=== PATIENT | female | born 1960 | race Caucasian/White ===

== ENCOUNTER → 2023-11-15 09:31 | Outpatient (REF) | payer BC, SELFPAY ==
[2023-11-15 11:16] LABS: % Basophils 0.7 % (0-2); % Eosinophils 2.4 % (0-6); % Lymphocytes 27.6 % (20.5-51.1); % Monocytes 8.2 % (1.7-9.3); % Neutrophils 60.1 % (42.2-75.2); Absolute Eosinophils 0.1 10^3/uL (0-0.7); Absolute Immature Granulocytes 0.1 10^3/uL (0-0.05); Absolute Lymphocytes 1.6 10^3/uL (1.2-3.4); Absolute Monocytes 0.5 10^3/uL (0.1-0.6); Absolute Neutrophils 3.5 10^3/uL (1.4-6.5); Hematocrit 42.6 % (37.0-47.0); Hemoglobin 13.4 g/dL (12.0-16.0); Mean Corp Hgb Conc. 31.5 g/dL (33.0-37.0); Mean Corpuscular Hgb 28.3 pg (27.0-31.0); Mean Corpuscular Volume 90.1 fL (81.0-99.0); Mean Platelet Volume 9.9 fL (7.4-10.4); Nucleated Red Blood Cells % 0 %; Platelet Count 311 10^3/uL (130-400); Red Blood Cell Count 4.73 10^6/uL (4.20-5.40); Red Cell Dist. Width 14.2 % (11.5-14.5); White Blood Cell Count 5.9 10^3/uL (4.8-10.8)
[2023-11-15 11:49] LABS: ALT (SGPT) 26 U/L (0-35); AST (SGOT) 25 U/L (14-36); Albumin 4.8 g/dl (3.5-5.0); Alkaline Phosphatase 62 U/L (38-126); Blood Urea Nitrogen 15 mg/dl (7-17); Carbon Dioxide 32 mmol/L (22-30); Chloride 101 mmol/L (98-107); Glucose 76 mg/dl (70-99); Potassium 4.5 mmol/L (3.5-5.1); Sodium 140 mmol/L (135-145); Total Bilirubin 0.4 mg/dl (0.2-1.3); Total Protein 7.1 g/dl (6.3-8.2); eGFR > 60.00
[2023-11-15 11:50] LABS: Erythrocyte Sed Rate 7 mm/hour (0-20)
[2023-11-15 11:56] LABS: C-Reactive Protein < 5.00 mg/L (0.0-10.00)
[2023-11-15 12:27] LABS: TSH 1.45 uIU/ml (0.47-4.68)
[2023-11-17 02:32] LABS: ds-DNA Ab, IgG Reflex To Titer 3 IU (0-24)
[2023-11-17 03:23] LABS: ANA, IgG Reflex to HEp-2 None Detected (None Detected)
[2023-11-18 00:02] LABS: IgG 498 mg/dl (700-1600); IgM 85 mg/dl (40-230)
[2023-11-18 00:39] LABS: IgA < 50 mg/dl (70-400)
== END ==
LOC: REG 09:31
PROVIDERS: FAMILY PHYSICIAN Family Medicine
DX: D83.9 Common variable immunodeficiency, unspecified (principal); R21 Rash and other nonspecific skin eruption
CPT/HCPCS: 36415; 80053; 82784; 84443; 85025; 85652; 86038; 86140; 86225; 86317; 86430

== ENCOUNTER 2024-01-28 19:49 | Emergency (ER) | payer BC, SELFPAY ==
[2024-01-28 19:54] VITALS: BP 152/75
[2024-01-28 20:14] LABS: % Basophils 0.4 % (0-2); % Eosinophils 0.3 % (0-6); % Immature Granulocytes 0.1 % (0-0.5); % Lymphocytes 16.3 % (20.5-51.1); % Monocytes 5.3 % (1.7-9.3); % Neutrophils 77.6 % (42.2-75.2); Absolute Lymphocytes 1.3 10^3/uL (1.2-3.4); Absolute Monocytes 0.4 10^3/uL (0.1-0.6); Absolute Neutrophils 6.2 10^3/uL (1.4-6.5); Hematocrit 38.2 % (37.0-47.0); Hemoglobin 12.8 g/dL (12.0-16.0); Mean Corp Hgb Conc. 33.5 g/dL (33.0-37.0); Mean Corpuscular Hgb 28.3 pg (27.0-31.0); Mean Corpuscular Volume 84.5 fL (81.0-99.0); Mean Platelet Volume 9.4 fL (7.4-10.4); Nucleated Red Blood Cells % 0 %; Platelet Count 326 10^3/uL (130-400); Red Blood Cell Count 4.52 10^6/uL (4.20-5.40); Red Cell Dist. Width 14.2 % (11.5-14.5); White Blood Cell Count 7.9 10^3/uL (4.8-10.8)
[2024-01-28 20:29] LABS: ALT (SGPT) 20 U/L (0-35); AST (SGOT) 22 U/L (14-36); Albumin 4.6 g/dl (3.5-5.0); Alkaline Phosphatase 67 U/L (38-126); Blood Urea Nitrogen 13 mg/dl (7-17); Calcium 10.1 mg/dl (8.4-10.2); Carbon Dioxide 26 mmol/L (22-30); Chloride 102 mmol/L (98-107); Glucose 137 mg/dl (70-99); Sodium 133 mmol/L (135-145); Total Bilirubin 0.6 mg/dl (0.2-1.3); Total Protein 6.6 g/dl (6.3-8.2); eGFR > 60.00
[2024-01-28 22:32] VITALS: BMI 21.5
[2024-01-28 22:33] VITALS: BP 136/82
[2024-01-28] MEDS: NSS 1000 IV (23:38)
[2024-01-28] MEDS: BENADRYL 25 MG IV (23:39)
[2024-01-28] MEDS: REGLAN 10 MG IV (23:40)
[2024-01-29 00:19] VITALS: BP 105/75
--- NOTE | 2024-01-29 00:44 | ED.GENMED ---
History of Present Illness
General
Chief Complaint: Headache
Source: patient
Exam Limitations: none
Time Seen by Provider: 01/28/24 22:16
Nursing documentation reviewed up to this point in time: agreed with
History of Present Illness
History of Present Illness:
Patient is a 63-year-old female presented to the ER for evaluation of headache. Patient reports she was prescribed doxycycline for toe infection and took a dose last night and woke up this morning with a headache. She is attributing the headache
to doxycycline. She typically does not get headaches. She is very nauseous with the headaches and had light sensitivity . She denies any trauma she is not on blood thinners. She denies any recent illness fever chills she. She denies any rash
neck stiffness blurry vision.
Past History
Past History
ED Past Medical History: None
ED Past Surgical History: None
Social History
Tobacco: Non-smoker
Alcohol: None
Drug: None
Personal:
Living: with family
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
Review of Systems
Review of Systems
Allergies reviewed?: Yes
All Other Systems: ROS reviewed and negative except as documented in HPI and ROS
Constitutional: Reports no symptoms
Respiratory: Reports no symptoms
Cardiac: Reports no symptoms
ABD/GI: Reports nausea
: Reports no symptoms
Musculoskeletal: Reports no symptoms; Denies neck pain
Skin: Reports no symptoms; Denies rash
Neurological: Reports headache; Denies dizzy
Psychiatric: Reports no symptoms
Phy Exam
General Physical Exam
General Presentation: no apparent distress
General age: appears stated age
General Skin: warm and dry
General Habitus: normal
General Mental: alert
General Hydration: appears well hydrated
ENT Exam
ENT Exam: EOMI and neck supple
Cardiovascular Exam
Cardiovascular Exam: regular rate/rhythm, no murmur and normal peripheral pulses
Pulmonary Exam
Pulmonary Exam: lungs clear and no respiratory distress
Neurological Exam
Neurological Exam: alert, oriented x3, no motor deficits and no sensory deficits
Alisha Coma Scale
Eye Opening: Spontaneous
Verbal Response: Oriented
Motor Response: Obeys Commands
GCS Total Score: 15
Musculoskeletal Exam
Musculoskeletal Exam: full ROM
Skin Exam
Skin Exam: normal color and warm/dry
Course
Orders/Labs/Results
Orders:
Orders
01/28/24 20:03
CMP [Comprehensive Metabolic Panel] Urgent
Complete Blood Count/With Diff Urgent
01/28/24 23:21
Diphenhydramine [Benadryl] 25 mg IV NOW STA
Metoclopramide [Reglan] 10 mg IV NOW STA
01/28/24 23:22
0.9% Sodium Chloride 1000 ml [Nss] 1,000 ml IV BOLUS
01/29/24 00:10
CT Head W/o Iv Contrast Urgent
Reason For Exam: headache
01/29/24 01:05
Ketorolac [Toradol] 15 mg IV NOW STA
Abnormal Lab Results
01/28/24
20:03
Neutrophils % 77.6 H %
(42.2-75.2)
Lymphocytes % 16.3 L %
(20.5-51.1)
Sodium 133 L mmol/L
(135-145)
Creatinine 0.5 L mg/dL
(0.6-1.0)
Glucose 137 H mg/dl
(70-99)
01/28/24 20:03
01/28/24 20:03
Vital Signs
Initial and Last Documented VS:
Initial Vital Signs
Temp Pulse Resp BP Pulse Ox
98.7 F 80 18 152/75 99
01/28/24 19:54 01/28/24 19:54 01/28/24 19:54 01/28/24 19:54 01/28/24 19:54
Last Documented Vital Signs
Temp Pulse Resp BP Pulse Ox
98.7 F 78 20 112/73 96
01/28/24 19:54 01/29/24 01:17 01/29/24 01:17 01/29/24 01:17 01/29/24 01:17
MDM/Problems Addressed
MDM/Problems Addressed:
Patient is a 63-year-old female who presented with headache. Patient is presently on antibiotics and and took the first dose last night doxycycline woke up with a headache this morning. She is attributing the headache to this. She however
presents awake alert no acute distress she does have light sensitivity and headache no meningismus no recent fever chills illness rash. No trauma no blood thinners. CT head negative. Patient was given Reglan fluids feeling much better also
Toradol further improved symptoms. Patient looks very well nontoxic labs unremarkable will. Will DC home with outpatient follow-up family doctor. No concerning patient's workup
*Radiology
Radiology exam reviewed: radiology read reviewed
*Pulse Oximetry
Patient hypoxic: no
*Critical Care Note
Total Time (30-74mins, 75-104mins- exclusive of procedures): Not Applicable
ED Attending Note
-
Portions of this chart may have been created with voice recognition software.� Occasional wrong word or��sound alike� substitutions may have occurred due to the inherent limitations of voice recognition software.
Discharge Plan
Departure
Patient Disposition: Home (Routine Discharge)
Date of Disposition: 01/29/24
Time of Disposition: 02:00
Patient with high blood pressure during this ER visit?: No
Condition: Fair
Covid-19: Not Applicable
Discharge Problem:
Headache
Instructions: Headache, Adult (DC), BLOOD PRESSURE
Prescriptions:
No Action
Probiotic
1 tab PO HS
Qvar RediHaler
2 inh inhalation HS
Singulair
10 mg PO DAILY
Vitamin D3
1 tab PO DAILY
albuterol
2 inh inhalation Q4H PRN (Reason: SOB)
calcium
1 tab PO DAILY
magnesium
1 tab PO HS
Referrals:
Darius Bond DO [Family Provider] -
Activity Restrictions/Additional Instructions:
As discussed you may take Tylenol for headache. Follow-up with your family doctor give them a call tomorrow for reevaluation of headache as well as further instructions on taking doxycycline. Return if any worsening of symptoms.
Interventions
Interventions:
*General Assessment Last Done: 01/28/24 22:33
*Neglect/Abuse Screening Last Done: 01/28/24 22:33
ED- Fall Risk Assessment Last Done: 01/28/24 22:33
ED- Neurological Assessment Last Done: 01/28/24 22:33
Discharge Date and Time
Print Language: ICELANDIC
[2024-01-29] MEDS: TORADOL 15 MG IV (01:13)
[2024-01-29 01:17] VITALS: BP 112/73
[2024-01-29 02:14] VITALS: BP 102/67
== END 2024-01-29 02:21 | disposition home or self-care (01) ==
LOC: EMR 19:49
PROVIDERS: Student in an Organized Health Care Education/Training Program; EMERGENCY PHYSICIAN Student in an Organized Health Care Education/Training Program; FAMILY PHYSICIAN Family Medicine
DX: R51.9 Headache, unspecified (principal)
CPT/HCPCS: 99284; 96374; 96375; 70450; 80053; 85025

== ENCOUNTER → 2024-04-10 08:21 | Outpatient (REF) | payer BC, SELFPAY ==
[2024-04-10 09:36] LABS: % Basophils 0.7 % (0-2); % Eosinophils 1.4 % (0-6); % Immature Granulocytes 0.3 % (0-0.5); % Monocytes 8.3 % (1.7-9.3); % Neutrophils 64.3 % (42.2-75.2); Absolute Eosinophils 0.1 10^3/uL (0-0.7); Absolute Lymphocytes 1.4 10^3/uL (1.2-3.4); Absolute Monocytes 0.5 10^3/uL (0.1-0.6); Absolute Neutrophils 3.7 10^3/uL (1.4-6.5); Hematocrit 39.9 % (37.0-47.0); Hemoglobin 12.8 g/dL (12.0-16.0); Mean Corp Hgb Conc. 32.1 g/dL (33.0-37.0); Mean Corpuscular Hgb 27.8 pg (27.0-31.0); Mean Corpuscular Volume 86.6 fL (81.0-99.0); Mean Platelet Volume 9.4 fL (7.4-10.4); Nucleated Red Blood Cells % 0 %; Platelet Count 331 10^3/uL (130-400); Red Blood Cell Count 4.61 10^6/uL (4.20-5.40); Red Cell Dist. Width 14.4 % (11.5-14.5); White Blood Cell Count 5.8 10^3/uL (4.8-10.8)
[2024-04-10 10:04] LABS: Urine Albumin Negative (Neg - Trace); Urine Bilirubin Negative (Negative); Urine Character Clear (Clear); Urine Color Yellow; Urine Glucose Negative (Negative); Urine Ketone Negative (Negative); Urine Leukocyte Negative (Negative); Urine Nitrite Negative (Negative); Urine Occult Blood Negative (Negative); Urine Specific Gravity 1.005 (<1.030); Urine Urobilinogen Negative (Neg - 1+)
[2024-04-10 10:33] LABS: ALT (SGPT) 21 U/L (0-35); AST (SGOT) 25 U/L (14-36); Albumin 4.7 g/dl (3.5-5.0); Alkaline Phosphatase 49 U/L (38-126); Blood Urea Nitrogen 13 mg/dl (7-17); Calcium 9.6 mg/dl (8.4-10.2); Carbon Dioxide 31 mmol/L (22-30); Chloride 102 mmol/L (98-107); Glucose 88 mg/dl (70-99); HDL Cholesterol 106 mg/dl; LDL Cholesterol, Calculated 104 mg/dl; Potassium 4.1 mmol/L (3.5-5.1); Sodium 142 mmol/L (135-145); Total Bilirubin 0.5 mg/dl (0.2-1.3); Total Cholesterol 223 mg/dl (50-199); Total Protein 6.9 g/dl (6.3-8.2); Triglyceride 66 mg/dl (10-149); Very Low Density Lipoprotein 13 mg/dl (0-30); eGFR > 60.00
[2024-04-10 11:00] LABS: TSH 1.45 uIU/ml (0.47-4.68)
[2024-04-10 11:19] LABS: Vitamin B12 301 pg/ml (239-931)
== END ==
LOC: REG 08:21
PROVIDERS: ATTENDING PHYSICIAN Family Medicine
DX: D80.9 Immunodeficiency with predominantly antibody defects, unspecified (principal); Z00.00 Encounter for general adult medical examination without abnormal findings; E78.00 Pure hypercholesterolemia, unspecified; E53.8 Deficiency of other specified B group vitamins
CPT/HCPCS: 36415; 80053; 80061; 81003; 82607; 84443; 85025

== ENCOUNTER → 2024-10-28 14:22 | Outpatient (REF) | payer BC, SELFPAY ==
[2024-10-28 16:08] LABS: ALT (SGPT) 31 U/L (0-35); AST (SGOT) 26 U/L (14-36); Albumin 4.4 g/dl (3.5-5.0); Alkaline Phosphatase 61 U/L (38-126); Blood Urea Nitrogen 14 mg/dl (7-17); Calcium 9.9 mg/dl (8.4-10.2); Carbon Dioxide 30 mmol/L (22-30); Chloride 105 mmol/L (98-107); Glucose 94 mg/dl (70-99); Phosphorus 3.5 mg/dl (2.5-4.5); Potassium 4.2 mmol/L (3.5-5.1); Sodium 141 mmol/L (135-145); Total Bilirubin 0.5 mg/dl (0.2-1.3); Total Protein 6.8 g/dl (6.3-8.2); eGFR > 60.00
[2024-10-28 16:22] LABS: Intact PTH 59.2 pg/ml (13.6-85.8)
[2024-10-28 16:23] LABS: Vitamin D, 25-OH*** 58.3 ng/mL (30-80)
[2024-10-28 16:37] LABS: TSH 1.06 uIU/ml (0.47-4.68)
== END ==
LOC: REG 14:22
PROVIDERS: ATTENDING PHYSICIAN Nurse Practitioner Family
DX: M81.0 Age-related osteoporosis without current pathological fracture (principal); E55.9 Vitamin D deficiency, unspecified; R79.89 Other specified abnormal findings of blood chemistry
CPT/HCPCS: 36415; 80053; 82306; 83735; 83970; 84100; 84443